=== PATIENT | female | born 1990 | race Caucasian/White ===

== ENCOUNTER 2018-10-20 20:14 | Emergency (ER) | payer OTHER ==
[~2018-10-20] VITALS: Ht 157.5 cm; Wt 102.1 kg
[~2018-10-20 20:14] MED LIST: CEPH250A PO; DIPH50 PO; IBUP800 PO; ONDA4ODT MM; PREN-16 PO
== END 2018-10-20 21:55 | disposition home or self-care (01) ==
LOC: ER 20:14
DX: R51 Headache (principal)
CPT/HCPCS: 96361; 96374; 96375; 99283-25; J0780; J1100; J1200; J2060; J7030

== ENCOUNTER → 2019-03-16 | Outpatient (CLI) | payer OTHER, SELFPAY | END | disposition home or self-care (01) | LOC: LAB SHORT 10:57 → LAB EV 10:57 | DX: R50.9 Fever, unspecified (principal) | CPT/HCPCS: 87081 ==

== ENCOUNTER 2019-05-31 08:48 | Day surgery (SDC) | payer OTHER, SELFPAY | END 2019-05-31 23:12 | disposition home or self-care (01) | LOC: ORD 08:48 → CT 08:48 → ORD 09:30 → CT 10:00 → ORD 23:12 | DX: R07.9 Chest pain, unspecified (principal); R94.31 Abnormal electrocardiogram [ECG] [EKG]; R00.1 Bradycardia, unspecified; R01.1 Cardiac murmur, unspecified; R06.00 Dyspnea, unspecified; E78.5 Hyperlipidemia, unspecified; E66.01 Morbid (severe) obesity due to excess calories; F31.9 Bipolar disorder, unspecified; F41.9 Anxiety disorder, unspecified; G43.909 Migraine, unspecified, not intractable, without status migrainosus; Z68.39 Body mass index [BMI] 39.0-39.9, adult | CPT/HCPCS: 75574; Q9967 ==

== ENCOUNTER 2019-08-06 10:59 | Emergency (ER) | payer OTHER ==
[~2019-08-06] VITALS: Ht 162.6 cm; Wt 102.1 kg
[2019-08-06 12:05] LABS: Troponin I <0.015 ng/mL (0.000-0.040)
[2019-08-06 12:06] LABS: Alanine Aminotransfer (ALT/SGP 34 U/L (12-78); Albumin, Blood 3.7 g/dL (3.4-5.0); Albumin/Globulin Ratio 0.8 (0.8-1.8); Alk Phos 100 U/L (50-136); Anion Gap 6 mmol/L (6-16); Aspartate Aminotrans (AST/SGOT 24 U/L (12-37); Bilirubin, Total 0.4 mg/dL (0.1-1.0); Blood Urea Nitrogen 14 mg/dL (8-24); Bun/Creatinine Ratio 21.3 (12.0-20.0); CO2, Blood 26 mmol/L (21-32); Chloride, Blood 107 mmol/L (98-108); Creatinine, Blood 0.66 mg/dL (0.40-1.00); Globulin, Blood 4.4 g/dL (2.2-4.0); Glomerular Filtration Rate >60 (60-); Glucose, Blood 93 mg/dL (70-99); Potassium, Blood 3.8 mmol/L (3.5-5.5); Sodium, Blood 139 mmol/L (136-145); Total Protein, Blood 8.1 g/dL (6.4-8.2)
[2019-08-06 12:45] LABS: BASOPHILS ABSOLUTE AUTO 0.03 K/mm3 (0.00-0.23); BASOPHILS PERCENT AUTO 0 % (0-2); EOSINOPHILS ABSOLUTE AUTO 0.05 K/mm3 (0.00-0.68); EOSINOPHILS PERCENT AUTO 1 % (0-6); Hematocrit 43.8 % (33.0-51.0); Hemoglobin 14.4 g/dL (11.5-16.0); IMMATURE GRAN ABSOLUTE AUTO 0.04 K/mm3 (0.00-0.10); IMMATURE GRAN PERCENT AUTO 1 % (0-1); LYMPHOCYTES ABSOLUTE AUTO 2.11 K/mm3 (0.84-5.20); LYMPHOCYTES PERCENT AUTO 27 % (21-46); MONOCYTES ABSOLUTE AUTO 0.51 K/mm3 (0.16-1.47); MONOCYTES PERCENT AUTO 7 % (4-13); Mean Corpuscular HGB 28.7 pg (26.0-34.0); Mean Corpuscular HGB Conc 32.9 g/dL (31.5-36.5); Mean Corpuscular Volume 87 fL (80-100); Mean Platelet Volume 11.6 fL (9.1-12.4); NEUTROPHILS ABSOLUTE AUTO 5.16 K/mm3 (1.96-9.15); NEUTROPHILS PERCENT AUTO 65 % (41-73); Platelet Count 195 K/mm3 (150-400); RDW Coefficient Variation 12.9 % (11.7-14.2); RDW Standard Deviation 41.4 fL (35.1-46.3); Red Blood Cell Count 5.02 M/mm3 (3.80-5.20)
== END 2019-08-06 16:15 | disposition home or self-care (01) ==
LOC: ER 10:59
PROVIDERS: Emergency Medicine
DX: F41.9 Anxiety disorder, unspecified (principal); R07.9 Chest pain, unspecified; F43.9 Reaction to severe stress, unspecified
CPT/HCPCS: 36415; 71045; 80053; 81025; 84484; 85025; 93005; 93010; 99285-25

== ENCOUNTER → 2020-02-12 | Outpatient (CLI) | payer OTHER | LOC: LAB EV 08:48 → LAB SHORT 08:48 | DX: J02.9 Acute pharyngitis, unspecified (principal) | CPT/HCPCS: 87081 ==

== ENCOUNTER 2020-02-27 15:01 | Outpatient (CLI) | payer OTHER ==
[2020-02-28 20:48] LABS: U Amphetamine Screen Not Detected; U Barbituate Screen Not Detected; U Benzodiazapine Screen Not Detected; U Buprenorphine Screen Not Detected; U Cannabinoids Screen Not Detected; U Cocaine Screen Not Detected; U Methadone Screen Not Detected; U Methamphetamine Screen Not Detected; U Opiates Screen Not Detected; U Oxycodone Screen Not Detected; U Phencyclidine Screen Not Detected; U Propoxyphene Screen Not Detected
== END 2020-02-28 | disposition home or self-care (01) ==
LOC: LAB 15:01
PROVIDERS: Internal Medicine Critical Care Medicine
DX: R40.0 Somnolence (principal)

== ENCOUNTER 2022-03-22 05:40 | Inpatient (IN) | payer OTHER ==
[~2022-03-22] VITALS: Ht 162.6 cm; Wt 104.5 kg
[2022-03-22] MEDS ORDERED: PRENATAL TABLE1 EAC2 PO (06:13)
[2022-03-22 07:11] LABS: BASOPHILS ABSOLUTE AUTO 0.03 K/mm3 (0.00-0.23); BASOPHILS PERCENT AUTO 0 % (0-2); EOSINOPHILS ABSOLUTE AUTO 0.03 K/mm3 (0.00-0.68); EOSINOPHILS PERCENT AUTO 0 % (0-6); Hematocrit 34.5 % (33.0-51.0); Hemoglobin 11.8 g/dL (11.5-16.0); IMMATURE GRAN ABSOLUTE AUTO 0.07 K/mm3 (0.00-0.10); IMMATURE GRAN PERCENT AUTO 1 % (0-1); LYMPHOCYTES PERCENT AUTO 14 % (21-46); MONOCYTES ABSOLUTE AUTO 0.65 K/mm3 (0.16-1.47); MONOCYTES PERCENT AUTO 6 % (4-13); Mean Corpuscular HGB 29.9 pg (26.0-34.0); Mean Corpuscular HGB Conc 34.2 g/dL (31.5-36.5); Mean Corpuscular Volume 88 fL (80-100); NEUTROPHILS ABSOLUTE AUTO 8.25 K/mm3 (1.96-9.15); NEUTROPHILS PERCENT AUTO 78 % (41-73); Platelet Count 134 K/mm3 (150-400); RDW Coefficient Variation 13.7 % (11.7-14.2); RDW Standard Deviation 43.9 fL (35.1-46.3); Red Blood Cell Count 3.94 M/mm3 (3.80-5.20); White Blood Cell Count 10.53 K/mm3 (4.00-11.30)
[2022-03-22 07:18] LABS: Mean Platelet Volume 13.2 fL (9.1-12.4)
--- NOTE | 2022-03-22 17:19 | NUR ---
VOID#1, SHOWER AND LINENS CHANGED. TOLERATED WELL
[2022-03-23 06:15] LABS: Hematocrit 32.5 % (33.0-51.0); Mean Corpuscular HGB 30.3 pg (26.0-34.0); Mean Corpuscular HGB Conc 33.8 g/dL (31.5-36.5); Mean Corpuscular Volume 90 fL (80-100); Platelet Count 122 K/mm3 (150-400); RDW Coefficient Variation 13.9 % (11.7-14.2); RDW Standard Deviation 45.1 fL (35.1-46.3); Red Blood Cell Count 3.63 M/mm3 (3.80-5.20)
[2022-03-23 07:05] LABS: Mean Platelet Volume 13.3 fL (9.1-12.4)
--- NOTE | 2022-03-23 18:14 | NUR ---
PATIENT DISCHARGED HOME AT 1700. DISCHARGE INSTRUCTIONS GIVEN, FOLLOW-UP APPT IN [facility] MADE FOR 03/25/2022.
== END 2022-03-23 17:00 | disposition home or self-care (01) | DRG 807 ==
LOC: OBS 05:40 → BC 05:43 → OBS 06:02 → BC 06:04
PROVIDERS: ADMIT Nurse Practitioner Obstetrics & Gynecology
PROC: 10E0XZZ Delivery of Products of Conception, External Approach (ICD-10-PCS; principal; 2022-03-22)
PROC: 00HU33Z Insertion of Infusion Device into Spinal Canal, Percutaneous Approach (ICD-10-PCS; 2022-03-22)
PROC: 3E0R3BZ Introduction of Anesthetic Agent into Spinal Canal, Percutaneous Approach (ICD-10-PCS; 2022-03-22)
DX: O80 Encounter for full-term uncomplicated delivery (principal); Z37.0 Single live birth; Z3A.38 38 weeks gestation of pregnancy; Z67.40 Type O blood, Rh positive; Z28.21 Immunization not carried out because of patient refusal
CPT/HCPCS: 36415; 59025; 85025; 85027; 86850; 86900; 86901; A9270; J1885; J2210; J2590; J3010; J7120

== ENCOUNTER 2022-07-01 04:27 | Observation (INO) | payer BC, OTHER ==
[~2022-07-01] VITALS: Ht 162.6 cm; Wt 101.2 kg
[2022-07-01] VITALS (14 sets, daily range): BP systolic 111–138; BP diastolic 57–81
[~2022-07-01 04:27] MED LIST changes: +PRENATAL TABLE1 EAC2 PO
[2022-07-01] MEDS ORDERED: Amitriptyline H10 MG PO (04:44)
[2022-07-01 05:38] LABS: BASOPHILS ABSOLUTE AUTO 0.03 K/mm3 (0.00-0.23); BASOPHILS PERCENT AUTO 1 % (0-2); EOSINOPHILS ABSOLUTE AUTO 0.12 K/mm3 (0.00-0.68); EOSINOPHILS PERCENT AUTO 2 % (0-6); Hematocrit 40.1 % (33.0-51.0); Hemoglobin 13.4 g/dL (11.5-16.0); IMMATURE GRAN ABSOLUTE AUTO 0.04 K/mm3 (0.00-0.10); IMMATURE GRAN PERCENT AUTO 1 % (0-1); LYMPHOCYTES ABSOLUTE AUTO 1.09 K/mm3 (0.84-5.20); LYMPHOCYTES PERCENT AUTO 20 % (21-46); MONOCYTES ABSOLUTE AUTO 0.39 K/mm3 (0.16-1.47); MONOCYTES PERCENT AUTO 7 % (4-13); Mean Corpuscular HGB 28.9 pg (26.0-34.0); Mean Corpuscular HGB Conc 33.4 g/dL (31.5-36.5); Mean Corpuscular Volume 86 fL (80-100); Mean Platelet Volume 11.5 fL (9.1-12.4); NEUTROPHILS PERCENT AUTO 69 % (41-73); Platelet Count 188 K/mm3 (150-400); RDW Coefficient Variation 13.4 % (11.7-14.2); RDW Standard Deviation 42.3 fL (35.1-46.3); Red Blood Cell Count 4.64 M/mm3 (3.80-5.20); White Blood Cell Count 5.37 K/mm3 (4.00-11.30)
[2022-07-01 06:02] LABS: Alanine Aminotransfer (ALT/SGP 1039 U/L (12-78); Albumin, Blood 3.5 g/dL (3.4-5.0); Albumin/Globulin Ratio 0.8 (0.8-1.8); Alk Phos 478 U/L (50-136); Anion Gap Unable to Calculate mmol/L (6-16); Aspartate Aminotrans (AST/SGOT 763 U/L (12-37); Bilirubin, Total 2.3 mg/dL (0.1-1.0); Blood Urea Nitrogen 18 mg/dL (8-24); Bun/Creatinine Ratio 24.1 (12.0-20.0); CO2, Blood 27 mmol/L (21-32); Calcium, Blood 8.8 mg/dL (8.5-10.1); Chloride, Blood 114 mmol/L (98-108); Creatinine, Blood 0.75 mg/dL (0.40-1.00); Globulin, Blood 4.3 g/dL (2.2-4.0); Glomerular Filtration Rate 109 (60-); Glucose, Blood 104 mg/dL (70-99); Potassium, Blood 4.2 mmol/L (3.5-5.5); Sodium, Blood 140 mmol/L (136-145); Total Protein, Blood 7.8 g/dL (6.4-8.2)
--- NOTE | 2022-07-01 08:55 | NUR ---
PATIENT ARRIVED FROM ER TODAY AT 0830. PATIENT IS A&OX4. VS ARE WNL AND IS ON RA. PATIENT DENIES PAIN AT THIS TIME. ABD IS TENDER TO PALPATATE WITH HYPERACTIVE BOWEL TONES. DENIES NAUSEA OR VOMITING. SHE IS VOIDING AND PASSING GAS. PATIENT IS INDEP. IN THE ROOM. PATIENT IS SITTING UP IN BED WITH CALL LIGHT IN REACH.
--- NOTE | 2022-07-01 14:19 | NUR ---
PATIENT JUST LEFT FOR THE OR.
--- NOTE | 2022-07-01 16:58 | NUR ---
PATIENT JUST CAME BACK FROM PACU TODAY AT 1640. POD 0 LAP USMAN PATIENT IS A&OX4. VS ARE WNL AND IS ON RA. PATIENT REPORTS 8/10 PAIN AND WILL BE GIVEN PAIN MEDICATIONS PER EMAR. ON PATIENTS ABD SHE HAS 4 LAP SITES WITH STERI STRIPS THAT ARE C/D/I. DENIES NAUSEA OR VOMITING AT THIS TIME. BOWEL TONES ARE HYPOACTIVE. SHE IS TOLERATING SMALL AMOUNTS OF PO INTAKE. PATIENT IS LAYING IN BED WITH CALL LIGHT IN REACH. SPOUSE IS AT BEDSIDE.
[2022-07-02 00:32] VITALS: BP 124/87
--- NOTE | 2022-07-02 04:05 | NUR ---
Summary: No acute events overnight. Patient pain managed on oral medications. VSS. Patient ambulating independently in room. Plan for DC today. Patient will need a note for work. Will pass message on to next nurse.
[2022-07-02 05:08] VITALS: BP 125/66
[2022-07-02 05:09] VITALS: BP 125/66
[2022-07-02 07:22] VITALS: BP 130/74
[2022-07-02] MEDS ORDERED: HYDR1TAB94 PO (10:25)
--- NOTE | 2022-07-02 12:28 | NUR ---
1210 DISCHARGED TO HOME. AMBULATING INDEPENDENTLY, PT REPORTS MINIMAL ABD PAIN. VOIDING CLEAR YELLOW URINE. ABD INCISIONS CLEAN, DRY, INTACT. PT IN AGREEMENT WITH PLAN TO DISCHARGE HOME
== END 2022-07-02 12:29 | disposition home or self-care (01) ==
LOC: ER 04:27 → SURS 04:28
PROVIDERS: Emergency Medicine; ADMIT Surgery
DX: K80.12 Calculus of gallbladder with acute and chronic cholecystitis without obstruction (principal); Z79.899 Other long term (current) drug therapy
CPT/HCPCS: 36415; 74181; 74300; 80053; 81025; 83690; 85025; 88304; 96365; 96366; 96375; 99285-25; A9270; C1729; G0378; J0295; J1100; J1170; J1885; J2250; J2405; J2704; J2795; J3010; J7030; J7120

== ENCOUNTER → 2023-01-26 | Outpatient (CLI) | payer BC, OTHER ==
[~2023-01-26] MED LIST changes: +Amitriptyline H10 MG PO; +HYDR1TAB94 PO
== END ==
LOC: LAB 15:54 → LAB SHORT 15:54
DX: R35.0 Frequency of micturition (principal)
CPT/HCPCS: 87086

== ENCOUNTER → 2023-08-22 | Outpatient (CLI) | payer BC, OTHER | LOC: LAB 15:48 → LAB SHORT 15:48 | DX: N39.0 Urinary tract infection, site not specified (principal) | CPT/HCPCS: 87077; 87086; 87186 ==

== ENCOUNTER → 2023-09-11 | Outpatient (CLI) | payer BC, OTHER | LOC: LAB SHORT 15:36 → LAB 15:36 | DX: N39.0 Urinary tract infection, site not specified (principal) | CPT/HCPCS: 87077; 87086; 87186 ==

== ENCOUNTER → 2023-10-03 | Outpatient (CLI) | payer BC, OTHER ==
[2023-10-03 13:13] LABS: Source, Urine Clean Catch
[2023-10-03 13:21] LABS: Appearance, Urine Clear (Clear); Bilirubin, Urine Neg (Neg); Blood, Urine Neg (Neg); Color, Urine Yellow (P-Yellow); Glucose Qualitative, Urine Neg (Normal); Ketones, Urine Neg (Neg); Leukocyte Esterase, Urine Neg (Neg); Nitrite, Urine Neg (Neg); Protein, Urine Neg (Neg); Specific Gravity, Urine 1.005 (1.003-1.022); Urobilinogen, Urine NORM (Normal)
== END | disposition home or self-care (01) ==
LOC: LAB SHORT 13:11 → LAB 13:11
PROVIDERS: Family Medicine
DX: N39.0 Urinary tract infection, site not specified (principal)
CPT/HCPCS: 81003

== ENCOUNTER 2024-01-12 21:48 | Emergency (ER) | payer OTHER, BC ==
[~2024-01-12] VITALS: Ht 162.6 cm; Wt 95.2 kg
[~2024-01-12 21:48] MED LIST changes: +IBUP600 PO
[2024-01-12 22:18] VITALS: BP 135/74
[2024-01-12] MEDS ORDERED: Ibuprofen 600 MG Tab PO ONE (23:15)
[2024-01-12] MEDS ORDERED: Acetaminophen 500 MG Tab PO ONE (23:15)
== END 2024-01-13 00:17 | disposition home or self-care (01) ==
LOC: ER 21:48
DX: S46.911A Strain of unspecified muscle, fascia and tendon at shoulder and upper arm level, right arm, initial encounter (principal); S20.212A Contusion of left front wall of thorax, initial encounter; M53.3 Sacrococcygeal disorders, not elsewhere classified; V47.5XXA Car driver injured in collision with fixed or stationary object in traffic accident, initial encounter; G43.909 Migraine, unspecified, not intractable, without status migrainosus; Z79.899 Other long term (current) drug therapy
CPT/HCPCS: 71045; 72100; 73030; 99284-25; A9270

== ENCOUNTER → 2024-03-01 | Outpatient (CLI) | payer BC, OTHER | END | disposition home or self-care (01) | LOC: LAB SHORT 18:48 → LAB 18:48 | DX: J02.9 Acute pharyngitis, unspecified (principal) | CPT/HCPCS: 87081 ==